=== PATIENT | female | born 1970 | race Caucasian/White ===

== ENCOUNTER 2020-08-15 18:11 | Inpatient (IN) | payer OTHER ==
[~2020-08-15] VITALS: Ht 165.1 cm; Wt 66.4 kg
[2020-08-15 18:35] VITALS: Ht 165.1 cm; Wt 66.4 kg
[2020-08-15] MEDS ORDERED: LANTI SQ (18:41)
[2020-08-15] MEDS ORDERED: ISOSORBIDE DINI30 M2 PO (18:42)
[2020-08-15] MEDS ORDERED: COZAAR50 M1 PO (18:42)
[2020-08-15] MEDS ORDERED: HUMALOG100 UNIT/1 SQ (18:42)
[2020-08-15] MEDS ORDERED: CARVEDILOL ER40 MG PO (18:42)
[2020-08-15] MEDS ORDERED: CATAPRES T0.3 MG/21 TD (18:43)
[2020-08-15] MEDS ORDERED: CELEXA10 MG PO (18:44)
[2020-08-15] MEDS ORDERED: ATA10 PO (18:44)
[2020-08-15] MEDS ORDERED: ASPIR 8181 MG PO (18:45)
[2020-08-15] MEDS ORDERED: MEG40 PO (18:45)
[2020-08-15] MEDS ORDERED: ELA25 PO (18:45)
[2020-08-15] MEDS ORDERED: LIPITOR40 MG PO (18:45)
[2020-08-15] MEDS ORDERED: OMEPRAZOLE20 M4 PO (18:46)
[2020-08-15] MEDS ORDERED: COLACE100 MG PO (18:46)
[2020-08-15] MEDS ORDERED: MELATONIN10 M1 PO (18:46)
[2020-08-15] MEDS ORDERED: RENA-VITE RX1 TAB PO (18:46)
[2020-08-15] MEDS ORDERED: REGLAN5 M1 PO (18:47)
[2020-08-15] MEDS ORDERED: RENVELA800 M1 PO (18:47)
[2020-08-15] MEDS ORDERED: D3 20002000 IU PO (18:47)
[2020-08-15 19:25] LABS: BASOPHIL % 0.7 % (0-2); PLATELET COUNT 339 x10^3mcL (130-400)
[2020-08-15 19:26] LABS: RED CELL DISTRIBUTION WIDTH 15.5 % (11.5-14.5)
[2020-08-15 19:51] LABS: BILIRUBIN TOTAL 0.4 mg/dL (0.20-1.00); CALCIUM 8.8 mg/dL (8.5-10.1); CARBON DIOXIDE 25.3 mmol/L (21-32); POTASSIUM SERUM 3.9 mmol/L (3.5-5.1)
[2020-08-15 19:56] LABS: TOTAL PROTEIN, SERUM 6.1 g/dL (6.4-8.2)
[2020-08-15 20:00] LABS: CREATININE SERUM 12.8 mg/dL (0.6-1.0)
[2020-08-15 20:43] LABS: MAGNESIUM 2.3 mg/dL (1.8-2.4); PHOSPHOROUS 7.8 mg/dL (2.5-4.9)
[2020-08-15 20:45] LABS: CHOLESTEROL/HDL RATIO 2.3
[2020-08-15 20:49] LABS: FREE T4 0.74 ng/dL (0.76-1.46)
[2020-08-15 20:50] LABS: FREE THYROXINE INDEX 1.4 ug/dL (1.4-4.5)
[2020-08-15 21:18] LABS: T3 TOTAL 0.54 ng/mL
[2020-08-15 22:20] VITALS: BP 202/103
[2020-08-15 22:30] VITALS: BP 220/114
[2020-08-16] VITALS (9 sets, daily range): BP systolic 123–182; BP diastolic 63–98
[2020-08-16 07:05] LABS: CALCIUM 8.4 mg/dL (8.5-10.1); CARBON DIOXIDE 23.4 mmol/L (21-32); MAGNESIUM 2.4 mg/dL (1.8-2.4); PHOSPHOROUS 7.8 mg/dL (2.5-4.9); POTASSIUM SERUM 3.9 mmol/L (3.5-5.1)
[2020-08-16 07:08] LABS: CREATININE SERUM 13.4 mg/dL (0.6-1.0)
[2020-08-16 07:17] LABS: PLATELET COUNT 317 x10^3mcL (130-400)
[2020-08-16 07:48] LABS: RED CELL DISTRIBUTION WIDTH 15.6 % (11.5-14.5)
[2020-08-16 11:59] LABS: MONOCYTE 8 % (0-7); SEGMENTED NEUTROPHILS 68 % (37-75); rbc morphology (normal/abnorm) NORMAL (NORMAL)
[2020-08-17 06:00] VITALS: BP 139/67
[2020-08-17 07:07] LABS: BASOPHIL % 1.1 % (0-2); PLATELET COUNT 339 x10^3mcL (130-400)
[2020-08-17 07:15] LABS: RED CELL DISTRIBUTION WIDTH 15.6 % (11.5-14.5)
[2020-08-17 07:16] LABS: CALCIUM 8.6 mg/dL (8.5-10.1); CARBON DIOXIDE 26.4 mmol/L (21-32); MAGNESIUM 2.5 mg/dL (1.8-2.4); POTASSIUM SERUM 4.5 mmol/L (3.5-5.1)
[2020-08-17 07:17] LABS: CREATININE SERUM 13.3 mg/dL (0.6-1.0)
[2020-08-17 08:22] VITALS: BP 167/86
[2020-08-17 12:44] VITALS: BP 107/48
[2020-08-17 13:12] VITALS: BP 107/48
[2020-08-17] MEDS ORDERED: AMOXICILLIN AND1 TAB PO (13:13)
[2020-08-17] MEDS ORDERED: LIPITOR40 MG PO (13:56)
[2020-08-17] MEDS ORDERED: NEPHRO-VITE RX1 TAB PO (13:58)
[2020-08-17] MEDS ORDERED: COZAAR100 MG PO (13:59)
== END 2020-08-17 14:20 | disposition home or self-care (01) | DRG 264 ==
LOC: ED 18:11 → MU 19:47 → DU 19:47 → MU 21:45 → DU 08-16 00:03
PROVIDERS: Internal Medicine Nephrology; Student in an Organized Health Care Education/Training Program; Surgery; ADMIT Family Medicine; ATTEND Family Medicine
PROC: 3E1M39Z Irrigation of Peritoneal Cavity using Dialysate, Percutaneous Approach (ICD-10-PCS; 2020-08-16)
PROC: 0JB70ZZ Excision of Back Subcutaneous Tissue and Fascia, Open Approach (ICD-10-PCS; principal; 2020-08-16 13:00)
DX: E11.52 Type 2 diabetes mellitus with diabetic peripheral angiopathy with gangrene (principal); N18.6 End stage renal disease; E43 Unspecified severe protein-calorie malnutrition; L02.31 Cutaneous abscess of buttock; E87.1 Hypo-osmolality and hyponatremia; I12.0 Hypertensive chronic kidney disease with stage 5 chronic kidney disease or end stage renal disease; I96 Gangrene, not elsewhere classified; L03.317 Cellulitis of buttock; Z68.24 Body mass index [BMI] 24.0-24.9, adult; E83.39 Other disorders of phosphorus metabolism; Z20.828 Contact with and (suspected) exposure to other viral communicable diseases; E11.22 Type 2 diabetes mellitus with diabetic chronic kidney disease; Z99.2 Dependence on renal dialysis; F32.9 Major depressive disorder, single episode, unspecified; F41.9 Anxiety disorder, unspecified; E11.65 Type 2 diabetes mellitus with hyperglycemia; D64.9 Anemia, unspecified
CPT/HCPCS: 82962; 84439; G0378; J1815; J2543; J3010; J3370; J3490; J7030; Q0092